=== PATIENT | male | born 1985 | race Caucasian/White ===

== ENCOUNTER 2017-12-22 21:39 | Emergency (ER) | payer MEDICAID, SELFPAY ==
[2017-12-22 21:40] VITALS: BP 129/72; PULSE 84; RESP 16; TEMP 36.7; O2SAT 95; BMI 39.7
--- NOTE | 2017-12-22 22:43 | ED.DCSUM_ITS ---
- ER Visit Summary Date of Service: 12/22/17 Chief Complaint: Left great toe pain History of Present Illness: The patient is a 32 M with no primary care physician. He reports that approximately 2 months ago he smashed his left great toe on a door. Proximally one month ago he reports that he felt like there is an ingrown nail there. He removed with clippers. However, the area continues to bleed and drain white fluid. Reports that he has a aching constant pain that is 4-10 in severity. It is 8 out of 10 with touching it becomes throbbing. Physical Examination: Vitals: Stable. Afebrile. General: Well-nourished and well-developed. Head: Normocephalic atraumatic. Neck: Supple, no lymphadenopathy. No JVD. Nontender. Cardiovascular: Regular rate and rhythm. No murmurs. Respiratory: No respiratory distress. Clear to auscultation bilaterally. Abdominal: Soft, nontender, nondistended, normal bowel sounds. No guarding, rebound, or peritoneal signs. Back: Nontender. Extremities: Moderate tenderness palpation to the medial side of his left great toe. There is no fluctuance or induration. He has markedly thickened skin medially. His nail is cut extremely short. Skin: Normal color, no rash. Neurologic: Alert and oriented ?3. Cranial nerves II through XII are intact. Normal strength and sensation. Psych: Normal affect. Emergency Department Course and Treatment: Patient refused an x-ray. I did discuss them the likelihood that he does have an ingrown toenail here. He reports he has had these multiple times in the past. He would prefer to have this repaired by podiatry so that he does not get recurrent ingrown toenails. Treatment Plan: Patient will be discharged to use Tylenol and/or ibuprofen for pain. Follow-up with Dr. Peres as soon as possible. Return to the emergency department for any worsening symptoms. Disposition: To home in improved and stable condition. Impression: 1. Left great toe ingrown toenail. This note was generated with [employer] dictation software. It may contain incorrect words, spelling, and punctuation that were not noted in review of the chart prior to signing ED Disposition - Plan for ED Patient: Disposition: Home or Assisted Living Chief Complaint: Other, Pain/Inj Instructions: ED Ingrown Toenail No Infec Home Tx Referrals: Albert Peres DPM [STAFF PHYSICIAN] - As soon as possible
[2017-12-22] MEDS: Naproxen 250 MG Tablet 500 MG PO (22:48)
[2017-12-22 22:51] VITALS: BP 131/76; PULSE 82; RESP 18; O2SAT 98
--- NOTE | 2017-12-22 22:52 | ED.RN ---
THIS NURSE REVIEWED D/C INSTRUCTIONS WITH PT. PT VERBALIZED UNDERSTANDING OF INSTRUCTIONS. PT DENIES FURTHER NEEDS OR QUESTIONS AT THIS TIME. PT AMBULATES FROM ROOM ON OWN WITHOUT ASSISTANCE FROM STAFF
== END 2017-12-22 22:53 | disposition home or self-care (01) ==
PROVIDERS: Emergency Provider Emergency Medicine
DX: L60.0 Ingrowing nail (principal); Z87.820 Personal history of traumatic brain injury
CPT/HCPCS: 99283

== ENCOUNTER 2018-04-23 19:16 | Emergency (ER) | payer MEDICAID, SELFPAY ==
[2018-04-23 19:17] VITALS: BP 141/81; PULSE 79; RESP 16; TEMP 36.6; BMI 38.9
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
--- NOTE | 2018-04-23 20:17 | ED.DEP ---
ED Disposition - Plan for ED Patient: Disposition: Home or Assisted Living Chief Complaint: Dental Instructions: Dental Abscess Prescriptions: Naproxen [Naprosyn] 500 mg PO BID PRN PRN #20 tablet PRN Reason: Pain Penicillin V Potassium 500 mg PO 4X/DAY #40 tablet
[2018-04-23 20:18] VITALS: PULSE 81; RESP 16; O2SAT 99
[2018-04-23] MEDS: Penicillin Vk 250 MG Tablet 500 MG PO (20:43)
[2018-04-23] MEDS: Naproxen 500 MG Tablet PO (20:43)
[2018-04-23] MEDS: HYDROcodone Bitartrate/Apap 5/325 Tablet PO (20:44)
== END 2018-04-23 20:48 | disposition home or self-care (01) ==
LOC: ED 20:26
PROVIDERS: Emergency Provider Emergency Medicine
DX: K08.89 Other specified disorders of teeth and supporting structures (principal); K02.9 Dental caries, unspecified; S02.5XXA Fracture of tooth (traumatic), initial encounter for closed fracture; X58.XXXA Exposure to other specified factors, initial encounter; Y93.9 Activity, unspecified; Y92.9 Unspecified place or not applicable; Y99.9 Unspecified external cause status
CPT/HCPCS: 99283

== ENCOUNTER 2019-01-26 20:07 | Emergency (ER) | payer MEDICAID, SELFPAY ==
[2019-01-26 20:07] VITALS: BP 125/74; PULSE 120; RESP 18; TEMP 36.8; O2SAT 94; BMI 38.2
[2019-01-26 20:26] VITALS: BP 130/70; PULSE 101; RESP 14; O2SAT 98
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
--- NOTE | 2019-01-26 20:50 | RAD_ITS ---
STUDY: X-RAY CHEST REASON FOR EXAM: Male, 33 years old. Cough and fever TECHNIQUE: PA and lateral views of the chest. COMPARISON: None. FINDINGS: There is a poor inspiration. There are streaky fibrotic or atelectatic changes of the left lung base. There is no demonstrated pleural abnormality. Normal size heart. Normal mediastinum and laura. Normal visualized pulmonary arteries. Normal visualized aortic arch and descending thoracic aorta. Normal visualized thoracic spine. Normal visualized ribs, clavicles, and shoulders. There is no demonstrated abnormality of the visualized soft tissue structures of the upper abdomen. RAD/Chest PA and Lateral IMPRESSION: Poor inspiration. Streaky fibrotic or atelectatic changes of the left lung base. Electronically Signed: Michael Villar MD at 21:16 EDT , Service support ,
--- NOTE | 2019-01-26 21:23 | ED.DEP ---
ED Disposition - Plan for ED Patient: Disposition: Home or Assisted Living Instructions: BRONCHITIS, No Antibiotic (Adult) Prescriptions: Azithromycin [Zithromax Z-Jose] 250 mg PO UD #1 box Prescription Printed Referrals: Alexys Marcial MD [STAFF PHYSICIAN] - Additional Instructions: Plenty of fluids and rest. Tylenol Motrin as needed for fever. If not improving in 3 to 5 days follow-up with your doctor.
[2019-01-26 21:28] VITALS: PULSE 103; RESP 15; O2SAT 99
== END 2019-01-26 21:28 | disposition home or self-care (01) ==
PROVIDERS: Emergency Provider Emergency Medicine
DX: J20.8 Acute bronchitis due to other specified organisms (principal); F43.10 Post-traumatic stress disorder, unspecified; Z87.820 Personal history of traumatic brain injury
CPT/HCPCS: 71046; 99282

== ENCOUNTER → 2023-08-19 | Outpatient (CLI) | payer MEDICAID, SELFPAY ==
--- NOTE | 2023-08-19 11:43 | RAD_ITS ---
EXAM: XR LUMBOSACRAL SPINE, 4 OR 5 VIEWS CLINICAL INDICATION: Sprain of ligaments of lumbar spine, initial encounter TECHNIQUE: Frontal, lateral and bilateral oblique views of the lumbar spine. COMPARISON: No relevant prior studies available. FINDINGS: VERTEBRAE: Unremarkable. Preserved vertebral body height. No fracture. No spondylolisthesis. Preservation of the normal lumbar lordosis. No significant facet arthropathy. DISC SPACES: No acute findings. Disc spaces are maintained. GASTROINTESTINAL TRACT: Unremarkable as visualized. Included bowel gas pattern is non-obstructive. RAD/L/S Spine Min 4 Views IMPRESSION: No evidence of lumbar spinal fracture or spondylolisthesis. Electronically Signed: Santosh Wheeler MD at 4:55 EDT ,
--- NOTE | 2023-08-19 11:50 | RAD_ITS ---
STUDY: X-RAY - CERVICAL SPINE REASON FOR EXAM: Male, 38 years old. Sprain of ligaments of cervical spine, initial encounter TECHNIQUE: 5 view(s) of the cervical spine were obtained. COMPARISON: None FINDINGS: Normal anterior atlantoaxial articulation. Normal odontoid process. Normal cervical lordosis. Normal vertebral bodies and endplates. Normal disc space heights. Normal visualized intervertebral neuroforamina. The soft tissue structures are unremarkable. There is no demonstrated fracture of the cervical spine. RAD/Cerv Spine 4 or 5 Views IMPRESSION: Normal x-ray examination of the visualized cervical spine. Electronically Signed: Neville Carbone MD at 20:58 EDT ,
== END | disposition home or self-care (01) ==
LOC: RAD 11:42
PROVIDERS: Referring Provider Chiropractor; Visit Provider Chiropractor
DX: S13.4XXA Sprain of ligaments of cervical spine, initial encounter (principal); S33.5XXA Sprain of ligaments of lumbar spine, initial encounter; X58.XXXA Exposure to other specified factors, initial encounter; Z87.81 Personal history of (healed) traumatic fracture
CPT/HCPCS: 72050; 72110